=== PATIENT | male | born 1960 | race Caucasian/White ===

== ENCOUNTER → 2020-07-28 | Outpatient (CLI) | payer BC ==
[2020-07-28 18:52] LABS: African American GFR (CKD) 93.1 (60.0-200.0); Albumin 4.2 g/dL (3.80-4.90); Albumin/Globulin Ratio 1.91 (1.60-3.17); Anion Gap 4.9 mmol/L (4.00-12.00); Bilirubin, Conjugated 0.4 mg/dL (0.20-0.40); Bilirubin,Unconjugated 1.3 mg/dL; Carbon Dioxide 27.1 mmol/L (21.6-31.8); Chol/HDL Ratio 6.26; Globulin 2.2 g/dL (1.6-3.3); Non-African American GFR(CKD) 80.3 (60.0-200.0); Potassium 4.4 mmol/L (3.5-5.5); Total Bilirubin 1.7 mg/dL (0.2-1.2); Total Protein 6.4 g/dL (6.2-8.2)
[2020-07-28 19:01] LABS: Prostate Specific Antigen 0.5 ng/mL (0.0-4.5)
== END | disposition home or self-care (01) ==
LOC: LABWHC1 10:18
PROVIDERS: ATTEND Internal Medicine
DX: Z00.00 Encounter for general adult medical examination without abnormal findings (principal); I10 Essential (primary) hypertension
CPT/HCPCS: 36415; 80051; 80061; 80076; 82565; 82947; 84153; 84520

== ENCOUNTER → 2020-08-29 | Outpatient (CLI) | payer BC ==
--- NOTE | 2020-08-29 16:38 | P.STRESS ---
- Stress Test Note Stress Test Results/Findings: Exam Performed: stress test Exam Date: 08/29/20 Reason for Exam: CP Height: 5 ft 8 in Weight: 95.5 kg Protocol: EXERCISE TOLERANCE TEST Stage: 4 Duration of Exercise: 9:45 Resting Heart Rate: 96 Resting Blood Pressure: 128/79 Maximum Achieved Heart Rate: 142 Maximum Achieved Blood Pressure: 167/80 85% PMHR: 134 100% PMHR: 158 METS: 11.3 Technologist Comment: Stress Test Results/Findings: Baseline heart rate 96 beats a minute, Baseline blood pressure 128/79 mmHg A central ECG showed sinus rhythm with ST segment abnormality in inferolateral leads Patient exercised on a Charles protocol for 9 minutes 45 seconds achieving a peak heart rate of 142 beats a minute. Normal blood pressure response to exercise there's no clear-cut ECG is for ischemia no sustained or nonsustained arrhythmias noted occasional PVCs and ventricular couplets noted Good excess capacity no ECG ms for ischemia occasional PVCs.
== END | disposition home or self-care (01) ==
LOC: RADNMMAIN 08:30
PROVIDERS: ATTEND Internal Medicine
DX: R94.31 Abnormal electrocardiogram [ECG] [EKG] (principal); R07.9 Chest pain, unspecified
CPT/HCPCS: 93017